=== PATIENT | male | born 1960 | race Caucasian/White ===

== ENCOUNTER → 2018-01-31 11:29 | Outpatient (CLI) | payer MEDICARE, SELFPAY ==
[2018-01-31 14:41] LABS: Erythrocyte Sedimentation Rate 35 mm/hr (0-20)
[2018-01-31 14:44] LABS: Absolute Lymphocyte Count 2.39 X10^3/ul (0.83-4.51); Absolute Neutrophil Count 5.6 X10^3/uL (2.0-7.7); Basophil# 0.03 X10^3/uL; Basophil% 0.3 % (0-1); Eosinophil# 0.19 X10^3/uL; Eosinophils% 2.2 % (0-5); Hematocrit 48.5 % (40-54); Hemoglobin 15.4 g/dl (13.0-16.5); Lymphocyte # 2.39 X10^3/ul (4.0); Lymphocyte % 27.5 % (19-41); Mean Corp Hgb Conc 31.8 g/gl (32-36); Mean Corpuscular Hgb 31.6 pg (27.0-32.0); Mean Corpuscular Volume 99.4 fL (80-94); Mean Platelet Vol. 11.2 fl (6.2-12.0); Monocyte# 0.43 X10^3/uL; Neutrophil # 5.63 X10^3/uL (2.7-7.7); Neutrophil % 64.9 % (47-70); Platelet Count 219 K/mm3 (150-450); RBC Distribution Width CV 13.1 % (11.6-14.6); RBC Distribution Width SD 47.2 fl (35.1-43.9); Red Blood Count 4.88 M/mm3 (4.6-6.2); White Blood Count 8.7 K/mm3 (4.4-11.0)
[2018-01-31 14:48] LABS: Vitamin B12 674 pg/mL (211-911); Vitamin D,25 Hydroxy 59.2 ng/mL (29.95-100.01)
[2018-01-31 14:50] LABS: POSITIVE COUNT NO; POSITIVE DIFFERENTIAL NO; POSITIVE MORPHOLOGY NO
[2018-01-31 15:22] LABS: AST(SGOT) 23 U/L (15-37); Alanine Aminotransfer ALT/SGPT 31 U/L (16-61); Albumin, Serum 3.8 g/dL (3.2-5.0); Alkaline Phosphatase 110 U/L (45-117); Anion Gap 8 (5-15); BUN 15 mg/dL (7-18); BUN/Creat Ratio 15.4 RATIO (10-20); Calcium,Total 9.3 mg/dL (8.5-10.1); Chloride 107 mmol/L (98-107); Cholesterol 165 mg/dL (200); Creatinine, Serum 0.98 mg/dL (0.70-1.30); EST Glomerular Filtration Rate 85 mL/min (>60); Est Glom Filt Rate - Afr Amer 102 mL/min (>60); Ferritin 104 ng/mL (26-388); Globulin 3.9 g/dL (2.2-4.2); Glucose 83 mg/dL (74-106); High Density Lipoprotein 37 mg/dL; Iron 107 ug/dL (65-175); Potassium 3.9 mmol/L (3.5-5.1); Protein, Total 7.7 g/dL (6.4-8.2); Sodium Level 142 mmol/L (136-145); Thyroid Stim Hormone (TSH) 1.87 uIU/mL (0.358-3.74); Triglycerides 91 mg/dL; Very Low Density Lipoprotein 18 mg/dL (5-40)
[2018-02-04 07:56] LABS: Vitamin B1, Thiamine 133.3 nmol/L (66.5-200.0); Zinc, Plasma or Serum 69 ug/dL (56-134)
== END ==
PROVIDERS: Family Provider Family Medicine; PCP Family Medicine; Visit Provider Family Medicine
DX: E29.1 Testicular hypofunction (principal); G60.8 Other hereditary and idiopathic neuropathies; M89.8X9 Other specified disorders of bone, unspecified site; Z98.84 Bariatric surgery status
CPT/HCPCS: 36415; 80053; 80061; 82306; 82607; 82728; 82746; 83540; 83735; 84403; 84425; 84443; 84630; 85025; 85652

== ENCOUNTER → 2018-02-07 11:42 | Outpatient (CLI) | payer MEDICARE, SELFPAY ==
[2018-02-07 15:58] LABS: Erythrocyte Sedimentation Rate 25 mm/hr (0-20)
[2018-02-07 16:04] LABS: CRP < 2.90 mg/L (0.0-3.0); Rheumatoid Factor < 10.0 IU/mL (<15)
[2018-02-09 18:16] LABS: ANTINUCLEAR ANTIBODIES DIRECT Negative (Negative)
== END ==
PROVIDERS: Family Provider Family Medicine; PCP Family Medicine; Visit Provider Family Medicine
DX: M89.8X9 Other specified disorders of bone, unspecified site (principal)
CPT/HCPCS: 36415; 85652; 86038; 86140; 86431

== ENCOUNTER → 2020-10-06 09:52 | Outpatient (CLI) | payer MEDICARE, SELFPAY ==
[2016-05-05 19:24] VITALS: BMI 32.5
[2020-10-06 13:06] LABS: Vitamin B12 562 pg/mL (211-911); Vitamin D,25 Hydroxy 38.8 ng/mL
[2020-10-06 13:24] LABS: ALB/GLOB Ratio 0.9 RATIO (0.9-2.4); AST(SGOT) 18 U/L (15-37); Alanine Aminotransfer ALT/SGPT 30 U/L (16-61); Alkaline Phosphatase 117 U/L (45-117); BUN 14 mg/dL (7-18); Calcium,Total 9.4 mg/dL (8.5-10.1); Cholesterol 211 mg/dL (200); Creatinine, Serum 1.08 mg/dL (0.70-1.30); EST Glomerular Filtration Rate 75 mL/min (>60); Est Glom Filt Rate - Afr Amer 90 mL/min (>60); Globulin 4.3 g/dL (2.2-4.2); Glucose 125 mg/dL (74-106); Protein, Total 8.3 g/dL (6.4-8.2); Triglycerides 92 mg/dL
[2020-10-06 13:25] LABS: Anion Gap 8 (5-15); Chloride 103 mmol/L (98-107); High Density Lipoprotein 48 mg/dL; PSA,Total - Annual Screen 2.15 ng/mL (0.00-4.00); Potassium 3.8 mmol/L (3.5-5.1); Sodium Level 137 mmol/L (136-145); Thyroid Stim Hormone (TSH) 3.77 uIU/mL (0.358-3.74); Very Low Density Lipoprotein 18 mg/dL (5-40)
== END ==
PROVIDERS: PCP Family Medicine; Visit Provider Family Medicine
DX: E11.9 Type 2 diabetes mellitus without complications (principal); Z12.5 Encounter for screening for malignant neoplasm of prostate; Z98.84 Bariatric surgery status
CPT/HCPCS: 36415; 80053; 80061; 82306; 82607; 84153; 84403; 84443; G0103

== ENCOUNTER → 2022-12-28 | Outpatient (CLI) | payer MEDICARE, SELFPAY ==
[2022-12-28 10:31] LABS: Amphetamine Urine VISTA POSITIVE (<1000 ng/mL); Barbiturate Urine VISTA NEGATIVE (< 200 ng/mL); Benzodiazepine Urine VISTA NEGATIVE (< 200 ng/mL); Cocaine Urine VISTA NEGATIVE (< 300 ng/mL); Ecstacy Urine VISTA NEGATIVE (< 500 ng/mL); Methadone Urine VISTA NEGATIVE (< 300 ng/mL); PCP Urine VISTA NEGATIVE (< 25 ng/mL); THC Urine VISTA POSITIVE (< 50 ng/mL); Vista UDS pH Range 5
[2022-12-28 10:40] LABS: Vitamin B12 980 pg/mL (211-911)
[2022-12-28 10:42] LABS: ALB/GLOB Ratio 0.9 RATIO (0.9-2.4); AST(SGOT) 15 U/L (15-37); Alanine Aminotransfer ALT/SGPT 18 U/L (16-61); Albumin, Serum 3.5 g/dL (3.2-5.0); Alkaline Phosphatase 116 U/L (45-117); Anion Gap 4 (5-15); BUN 17 mg/dL (7-18); BUN/Creat Ratio 17.1 RATIO (10-20); Calcium,Total 8.7 mg/dL (8.5-10.1); Chloride 112 mmol/L (98-107); Creatinine, Serum 0.99 mg/dL (0.70-1.30); EST Glomerular Filtration Rate 82 mL/min (>60); Est Glom Filt Rate - Afr Amer 99 mL/min (>60); Globulin 3.8 g/dL (2.2-4.2); Glucose 101 mg/dL (74-106); Magnesium 2.1 mg/dL (1.6-2.6); Potassium 3.5 mmol/L (3.5-5.1); Protein, Total 7.3 g/dL (6.4-8.2); Sodium Level 141 mmol/L (136-145)
== END | disposition home or self-care (01) ==
PROVIDERS: PCP Family Medicine; Referring Provider Registered Nurse; Visit Provider Registered Nurse
DX: F19.10 Other psychoactive substance abuse, uncomplicated (principal); F31.81 Bipolar II disorder; Z79.899 Other long term (current) drug therapy
CPT/HCPCS: 36415; 80053; 80307; 82607; 83735

== ENCOUNTER 2024-05-24 11:29 | Emergency (ER) | payer MEDICARE, SELFPAY ==
[2024-05-24 11:29] VITALS: BP 157/91; PULSE 118; RESP 18; TEMP 36.6; O2SAT 98; BMI 29.7
--- NOTE | 2024-05-24 11:42 | RAD_ITS ---
INDICATION: INJURY EXAMINATION/TECHNIQUE: X-RAY - RIGHT XR Wrist Min 3 Views 3 VIEWS COMPARISON: No relevant prior comparison study available FINDINGS: SOFT TISSUES: No soft tissue swelling or gas. No radiopaque foreign body. BONES/JOINTS: No acute fracture or subluxation.. Normal alignment. 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 No sclerotic or destructive changes observed. RAD/Wrist min 3 Views IMPRESSION: No evidence of acute fracture or dislocation. Electronically Signed: Dread Mayer MD at 12:29 EST ,
--- NOTE | 2024-05-24 11:42 | RAD_ITS ---
INDICATION: FALL EXAMINATION/TECHNIQUE: X-RAY - RIGHT XR Shoulder Min 2 Views 4 VIEWS COMPARISON: No relevant prior comparison study available FINDINGS: SOFT TISSUES: No soft tissue swelling or gas. No radiopaque foreign body. BONES/JOINTS: No acute fracture or subluxation.. Normal alignment. Preservation of the joint space.. No sclerotic or destructive changes observed. RAD/Shoulder min 2 Views IMPRESSION: No evidence of acute fracture or dislocation. Electronically Signed: Dread Mayer MD at 12:25 EST ,
--- NOTE | 2024-05-24 14:46 | ED.RN ---
PT STATED HE WAS GOING TO [place] 2 HRS AGO, NEVER RETURNED
== END 2024-05-24 16:00 | disposition left against medical advice (07) ==
LOC: ED 16:14
PROVIDERS: PCP Family Medicine
DX: Z53.21 Procedure and treatment not carried out due to patient leaving prior to being seen by health care provider (principal)
CPT/HCPCS: 73030; 73110

== ENCOUNTER 2024-05-25 10:34 | Emergency (ER) | payer MEDICARE, MEDICAID, SELFPAY ==
[2024-05-25 10:35] VITALS: BP 141/95; PULSE 110; RESP 18; TEMP 36.6; O2SAT 98; BMI 29.7
--- NOTE | 2024-05-25 10:54 | EX.ED.UPPERE ---
HPI History of Present Illness Chief Complaint: Upper Extremity Injury [facility] Medical History (Updated 05/25/24 @ 10:41 by Debbie Salas) Shoulder pain Home Medications ?Medication ?Instructions ?Recorded ?Last Taken ?Type Pediatric Multivit #14/Iron/FA 1 tab PO DAILY 05/30/13 Unknown History cholecalciferol (vitamin D3) 50 2,000 unit PO DAILY 05/30/13 Unknown History mcg (2,000 unit) tablet (Vitamin D3) cyanocobalamin (vitamin B-12) 500 mcg sublingual DAILY 05/30/13 Unknown History 1,000 mcg sublingual tablet dextroamphetamine-amphetamine 10 20 mg PO TID 05/15/14 Unknown History mg tablet (Adderall) magnesium 200 mg tablet 400 mg PO DAILY 05/15/14 Unknown History temazepam 30 mg capsule (Restoril) 30 mg PO QHS PRN PRN Sleep 05/15/14 Unknown History cephalexin 500 mg capsule 500 mg PO Q6 ##40 05/05/16 Unknown Rx prednisone 20 mg tablet 20 mg PO DAILY 5 days #5 tabs 05/25/24 Unknown Rx Allergy/AdvReac Type Severity Reaction Status Date / Time No Known Allergies Allergy Verified 05/25/24 10:35 Social History Smoking Status: Unknown if ever smoked EXAM Physical Exam Const Vital Signs: 05/25/24 10:35 Temperature 97.8 F Temperature Source Oral Pulse Rate 110 H Respiratory Rate 18 Blood Pressure 141/95 H Blood Pressure Mean 110 Pulse Ox 98 Oxygen Delivery Method Room Air MDM MDM MDM Narrative Medical decision making narrative: HISTORY OF PRESENT ILLNESS: 64-year-old male presents with acute on chronic shoulder pain. States has been on and off past few months. States he had increased exertion this weekend as he was moving. He states this flareup the pain. He also complains of right wrist pain. States; for 8 months. He states he has not tried any medication at home because he is not into taking medications. He has not follow-up with orthopedic surgery. He states he had an x-ray done of his shoulder yesterday. He denies any new traumatic injury. Denies any history of blood clots. Denies history of diabetes. Denies fevers. Denies any numbness, tingling or loss of sensation in the involved extremity. REVIEW OF SYSTEMS: Pertinent positives: Shoulder pain Pertinent negatives: Fever, numbness, tingling, loss sensation, loss of movement, recent trauma PHYSICAL EXAM: Nursing triage notes reviewed, Vital signs reviewed Constitutional: please see mdm : No CVAT Extremities: No edema, no TTP over right clavicle. No step-off deformities noted to right shoulder. Intact shoulder flexion extension internal/external rotation abduction/adduction. Range of motion right shoulder was limited slightly however the patient could complete full range of motion with slight TTP. Neuro: Intact 5/5 strength with ok sign (median), intact finger abduction (ulnar) intact wrist extension (radial n). Intact sensation in the radial, ulnar, and median nerve distr Axillary nerve function intactibutions. Skin: No rash or lesions noted MEDICAL DECISION MAKING: Chief Complaint: Shoulder pain External records reviewed: Injury reviewed: X-ray of the shoulder from yesterday showed no acute fracture dislocation Factors affecting care: none Social determinants of health: none History obtained from others: none Consults: none [facility] Narrative: The patient was initially tachycardic otherwise afebrile and nontoxic-appearing. Exam without obvious deformities. Full range of motion. 4/5 strength in the right upper extremity 5/5 in left upper extremity. I considered the following differential diagnosis: fracture, dislocation, DVT, septic arthritis, rotator cuff strain ALL IMAGES (IF OBTAINED) HAVE BEEN PERSONALLY REVIEWED AND INTERPRETED BY MYSELF. I considered obtaining advanced imaging of the wrist and shoulder however thought this was not indicated at this time given patient no new trauma and had imaging of the shoulder yesterday which showed no acute fracture or dislocation. While considered septic arthritis without this was less likely as the patient's heart rate improved without treatment to 96. He had no fever. There is no sign of decreased range of motion or limited range of motion. Patient had no immunocompromising state such as diabetes or cancer. As such have a low suspicion for septic arthritis at this time. The patient had a low DVT risk score and as such have a low suspicion for DVT. I suspect he is suffering from a rotator cuff strain and acute on chronic shoulder and wrist inflammation exacerbated by recent activities including moving. He already has a wrist brace and will require close outpatient Orthopedics follow-up. Strict return precautions were discussed. Verbal and written instructions were given. The patient and/or family, caregivers express understanding. The patient and/or family, caregivers agrees with the plan. Shared decision making: I will have a discussion with the patient and or visitors regarding risk/benefits of further testing or admission. They will be made aware of of the risk/benefits inherent in this decision they will be given the opportunity to voice understanding. Total critical care time today provided was at least 0 minutes. This excludes separately billable procedures. Critical care time (if documented) is secondary to the patient having high probability of clinically significant/life threatening deterioration in the patient's condition which required my urgent intervention. Impression: 1. acute on chronic right shoulder pain 2. acute on chronic right wrist pain Dispo: dispo This note was generated with [employer] dictation software. It may contain incorrect words, spelling, and punctuation that were not noted in review of the chart prior to signing. Discharge Plan Triage Chief Complaint: Upper Extremity Injury ED Provider: Asif Romero Dx/Rx/DC Orders Instructions: ED Shoulder Sprain, ED Wrist Sprain Prescriptions: New prednisone 20 mg tablet 20 mg PO DAILY 5 Days Qty: 5 0RF No Action cyanocobalamin (vitamin B-12) 1,000 MCG tablet, sublingual 500 mcg sublingual DAILY Patient Comments: takes on cholecalciferol (vitamin D3) [Vitamin D3] 2,000 UNIT tablet 2,000 unit PO DAILY Pediatric Multivit #14/Iron/FA 1 tab PO DAILY dextroamphetamine-amphetamine [Adderall] 10 MG tablet 20 mg PO TID temazepam [Restoril] 30 MG capsule 30 mg PO QHS PRN PRN (Reason: Sleep) magnesium 200 MG tablet 400 mg PO DAILY cephalexin 500 MG capsule 500 mg PO Q6 Qty: 40 0RF Primary Care Provider: Jorge Mayberry Referrals: Jorge Mayberry MD [Primary Care Provider] - Activity Restrictions/Additional Instructions: Thank you for trusting us with your care today! Your history and exam were consistent with acute on chronic wrist and shoulder pain. I do not suspect you are experiencing a arm threatening emergency. Please take Tylenol (2 pills, 650 mg), every 6 hours as needed for pain and fever control. If the Tylenol and prednisone is not controlling her pain please take 1 pill of ibuprofen for additional relief. Please take prednisone as prescribed Please return to the emergency department if your symptoms change or worsen. Please follow with your primary care physician for further outpatient evaluation and management. Print Language: German Disposition Disposition: Home, Self Care Discharge Date/Time: 05/25/24 11:37
== END 2024-05-25 11:37 | disposition home or self-care (01) ==
LOC: ED 11:34
PROVIDERS: Emergency Provider Emergency Medicine; PCP Family Medicine; Visit Provider Emergency Medicine
DX: G89.29 Other chronic pain (principal); M25.531 Pain in right wrist; M25.511 Pain in right shoulder
CPT/HCPCS: 99282

== ENCOUNTER 2024-08-09 19:47 | Inpatient (IN) | payer MEDICARE, MEDICAID, SELFPAY ==
--- NOTE | 2024-08-09 19:48 | EKG12_ITS ---
Test Reason : CP Blood Pressure : */* mmHG Vent. Rate : 74 BPM Atrial Rate : 74 BPM P-R Int : 180 ms QRS Dur : 80 ms QT Int : 410 ms P-R-T Axes : 65 60 69 degrees QTcB Int : 455 ms Critical Test Result: STEMI Normal sinus rhythm Inferior infarct , possibly acute ACUTE CO / STEMI Abnormal ECG Confirmed by Gt Vegas ([id number]), editor city KYLEIGH KIRBY ([id number]) on 08/12/2024 9:55:27 AM Referred By: Sadie Mckeon Confirmed By: Gt Vegas
[2024-08-09 19:49] VITALS: BP 141/89; PULSE 73; RESP 18; O2SAT 100
--- NOTE | 2024-08-09 19:49 | ED.VIS.CHEST ---
HPI History of Present Illness Chief Complaint: Chest Pain Detail of Chief Complaint: Left-sided chest pressure that started 45 minutes prior to arrival Informant: patient Onset/Context/Timing Onset: Today and Hours Activity at onset: sudden Timing: Continuous Quality: Positive for Pressure Location: Left Chest Current Severity: Mild Maximum Severity: Severe Worsened By: Nothing Relieved By: Nothing Associated Symptoms: Positive for Nausea, Diaphoresis and Dyspnea; Negative for Vomiting, Cough, Fever, Lightheadedness, Acid Reflux or Palpitations Narrative Narrative: Patient is a 64-year-old male with history of hypertension, gastric bypass surgery, atrial flutter on no anticoagulant or antithrombotic. He developed chest tightness pressure left side 45 minutes prior to presentation. Prehospital EKG reveals inferior ST elevation in leads II, III, aVF with lateral depression. Prior Similar Symptoms: No Recent Illness/Hospitalization: No CVD Risk Factors: Positive for Hypertension, Hypercholesterolemia and Smoking PE Risk Factors: Negative for Recent Travel/Surgery, Recent Immobilization, Prior DVT or PE, Cancer or OCP + Smoking + >/=35 TAD Risk Factors: Positive for Hypertension; Negative for Marfan's Syndrome or Family History [facility] Medical History (Updated 08/09/24 @ 19:[address] Migue Grider MD) Shoulder pain Home Medications ?Medication ?Instructions ?Recorded ?Last Taken ?Type Pediatric Multivit #14/Iron/FA 1 tab PO DAILY 05/30/13 Unknown History cholecalciferol (vitamin D3) 50 2,000 unit PO DAILY 05/30/13 Unknown History mcg (2,000 unit) tablet (Vitamin D3) cyanocobalamin (vitamin B-12) 500 mcg sublingual DAILY 05/30/13 Unknown History 1,000 mcg sublingual tablet dextroamphetamine-amphetamine 10 20 mg PO TID 05/15/14 Unknown History mg tablet (Adderall) magnesium 200 mg tablet 400 mg PO DAILY 05/15/14 Unknown History temazepam 30 mg capsule (Restoril) 30 mg PO QHS PRN PRN Sleep 05/15/14 Unknown History cephalexin 500 mg capsule 500 mg PO Q6 ##40 05/05/16 Unknown Rx prednisone 20 mg tablet 20 mg PO DAILY 5 days #5 tabs 05/25/24 Unknown Rx Allergy/AdvReac Type Severity Reaction Status Date / Time No Known Allergies Allergy Verified 08/09/24 19:48 Social History Smoking Status: Unknown if ever smoked ROS ROS ED Constitutional Constitutional ED: Denies chills, fever(s), subjective or sweats Eyes Eyes: Reports none ENT ENT ED: Denies ear pain or rhinorrhea Cardiovascular Cardiovascular: Reports as per HPI; Denies orthopnea or paroxysmal nocturnal dyspnea Respiratory/Chest Respiratory/Chest: Reports dyspnea; Denies cough, dyspnea on exertion, orthopnea or paroxysmal nocturnal dyspnea Gastrointestinal Gastrointestinal: Reports nausea; Denies abdominal pain, melena or vomiting Genitourinary Genitourinary ED: Denies dysuria, hematuria or urinary frequency Musculoskeletal Musculoskeletal: Denies arthralgias or myalgias Integumentary Denies rash Neurologic Neurologic: Denies headache(s) or paresthesias Endocrine Endocrinology: Denies cold intolerance or heat intolerance Hematologic/Lymphatic Hematologic/Lymphatic: Denies easy bleeding or easy bruising Allergic/Immunologic Allergic/Immunologic ED: Denies mouth swelling or tongue swelling EXAM Physical Exam Narrative Exam Narrative: Patient received aspirin, Brilinta and heparin prehospital. Const Positive well nourished and well developed General Appearance ED: well developed and NAD HEENT Reports moist mucous membranes HEENT Narrative: Patient is a dentulous. normocephalic and atraumatic Eyes PERRL and EOMs intact bilaterally General Eye ED: Negative for pale conjunctiva Neck no lymphadenopathy and supple Chest Wall inspection of chest normal Resp normal respiratory effort and clear to auscultation bilaterally Cardio regular rate, regular rhythm, S1 normal heart sound, S2 normal heart sound and no murmurs GI normal to inspection, nondistended, normoactive bowel sounds, soft to palpation, non-tender and non-distended; Negative for hepatosplenomegaly Back/Spine no CVA tenderness Extremity normal to inspection General Extremety ED: Negative for pulses abnormal General Extremity: Negative for pulses abnormal Neuro oriented x3 and CN's II-XII intact bilaterally Sensorium / Orientation: awake and alert Psych mental status grossly normal Skin no rashes or lesions noted and no wounds MDM MDM MDM Narrative Medical decision making narrative: Patient's prehospital EKG revealed acute ST elevation MT inferior leads. EKG in the ED shows an acute ST elevation inferior MT. History & Record Review Discussion w/independent historian: Patient Management Discussion w/another healthcare provider: Kindergarten Teacher Assistant (STEMI category planner made aware of EKG prior to patient's arrival. He requested Aircraft Powerplant Repairer be called in.) Critical Care Time Critical Care Time: Yes Critical care time (excluding procedures): 30-74 minutes (10), Including time spent:, Discussing w/Patient &/or Family/Check Processing Clerk, Discussing w/Consultants and Arranging Admission or Transfer Discharge Plan Triage Chief Complaint: Chest Pain ED Provider: Migue Grider Dx/Rx/DC Orders Clinical Impression: Acute ST elevation myocardial infarction (STEMI) of inferior wall, History of primary hypertension, History of type 2 diabetes mellitus, Hx of atrial fibrillation, no current medication Prescriptions: No Action cyanocobalamin (vitamin B-12) 1,000 MCG tablet, sublingual 500 mcg sublingual DAILY Patient Comments: takes on cholecalciferol (vitamin D3) [Vitamin D3] 2,000 UNIT tablet 2,000 unit PO DAILY Pediatric Multivit #14/Iron/FA 1 tab PO DAILY dextroamphetamine-amphetamine [Adderall] 10 MG tablet 20 mg PO TID temazepam [Restoril] 30 MG capsule 30 mg PO QHS PRN PRN (Reason: Sleep) magnesium 200 MG tablet 400 mg PO DAILY cephalexin 500 MG capsule 500 mg PO Q6 Qty: 40 0RF prednisone 20 mg tablet 20 mg PO DAILY 5 Days Qty: 5 0RF Primary Care Provider: Jorge Mayberry Referrals: Jorge Mayberry MD [Primary Care Provider] - Print Language: Trinidadian Disposition Disposition: Acute Care [facility]
[2024-08-09 19:57] VITALS: BP 141/89; TEMP 36.6; BMI 35.6
[2024-08-09 20:03] LABS: Absolute Neutrophil Count 6.3 X10^3/uL (2.0-7.7); Basophil# 0.05 X10^3/uL; Basophil% 0.6 % (0-1); Eosinophil# 0.07 X10^3/uL; Eosinophils% 0.8 % (0-5); Hemoglobin 14.1 g/dL (13.0-16.5); Lymphocyte % 20.1 % (19-41); Mean Corpuscular Hgb 30.5 pg (27.0-32.0); Mean Corpuscular Volume 95.2 fL (80-94); Mean Platelet Vol. 10.4 fl (6.2-12.0); Monocyte# 0.69 X10^3/uL; Monocyte% 7.7 % (0-10); NRBC Flagged by Analyzer 0 % (0-5); Neutrophil # 6.31 X10^3/uL (2.7-7.7); Neutrophil % 70.5 % (47-70); Platelet Count 271 K/mm3 (150-450); RBC Distribution Width SD 45.2 fl (35.1-43.9); Red Blood Count 4.62 M/mm3 (4.6-6.2)
--- NOTE | 2024-08-09 20:08 | PCM.HP.STD ---
HPI - General General Date of Admission: 08/09/24 Date of Service: 08/09/24 Chief Complaint: Chest pain, dyspnea, N/V, diaphoresis. HPI Narrative The patient is a 64 y/o M w/ PMHx: Nicotine vaping use, History of Diabetes mellitus type II s/p gastric bypass not on any diabetic regimen, HTN, Prior chart noted history PAF/Flutter, ADHD who presents to the [facility] ED on 08/09/24 as a pre-hospital inferior STEMI with history of onset approximately 45 minutes prior to ED arrival while he was resting to go to the store onset left-sided chest discomfort with no radiation with associated dyspnea, nausea, emesis, diaphoresis rating his discomfort at that time 10 out of 10 prompting EMS call prehospital EKG as noted with evidence of STEMI within route administration of full-strength aspirin, Brilinta load as well as heparin 4000. Upon arrival he specifically described the chest discomfort as a squeezing type sensation. In the ED his chest discomfort did improved to 8 out of 10 in severity and following this upon cardiology evaluation in the ED had already decreased down to 6-7 out of 10 in severity. In the ED repeat EKG obtained and confirmed STEMI. Cardiology evaluated patient in the ED and patient was transition to cardiac catheterization lab for further intervention. Vital signs in the ED upon arrival T98 temporally, heart rate 131/89, respiratory rate 18. [facility] Medical History (Updated 08/09/24 @ 21:[address] Sadie Mckeon MD) History of type 2 diabetes mellitus Hx of atrial fibrillation, no current medication Nicotine vapor product user HTN (hypertension) Home Medications ?Medication ?Instructions ?Recorded ?Last Taken ?Type Pediatric Multivit #14/Iron/FA 1 tab PO DAILY 05/30/13 Unknown History cholecalciferol (vitamin D3) 50 2,000 unit PO DAILY 05/30/13 Unknown History mcg (2,000 unit) tablet (Vitamin D3) cyanocobalamin (vitamin B-12) 500 mcg sublingual DAILY 05/30/13 Unknown History 1,000 mcg sublingual tablet dextroamphetamine-amphetamine 10 20 mg PO TID 05/15/14 Unknown History mg tablet (Adderall) magnesium 200 mg tablet 400 mg PO DAILY 05/15/14 Unknown History temazepam 30 mg capsule (Restoril) 30 mg PO QHS PRN PRN Sleep 05/15/14 Unknown History cephalexin 500 mg capsule 500 mg PO Q6 ##40 05/05/16 Unknown Rx prednisone 20 mg tablet 20 mg PO DAILY 5 days #5 tabs 05/25/24 Unknown Rx Allergy/AdvReac Type Severity Reaction Status Date / Time No Known Allergies Allergy Verified 08/09/24 19:48 Family History (Updated 08/09/24 @ 20:[address] Sadie Mckeon MD) Mother Cancer Father Cancer Surgical History (Updated 08/09/24 @ 20:[address] Sadie Mckeon MD) History of tonsillectomy and adenoidectomy S/P gastric bypass Social History (Updated 08/09/24 @ 20:[address] Sadie Mckeon MD) household members: none Electronic Cigarette Use: with nicotine alcohol intake: never substance use type: does not use ROS ROS Narrative Admission Review of Systems: CONSTITUTIONAL: No weight loss, fever, chills, + weakness or fatigue. HEENT: Eyes: No visual loss, blurred vision, double vision or yellow sclerae. Ears, Nose, Throat: No hearing loss, sneezing, congestion, runny nose or sore throat. SKIN: No rash or itching, lesions, wounds. CARDIOVASCULAR: + Chest pain/squeezing. No palpitations, edema, orthopnea, syncopal events. RESPIRATORY: No shortness of breath, cough or sputum, wheezing, hemoptysis. GASTROINTESTINAL: + Anorexia, nausea, vomiting. No diarrhea, abdominal pain, melena, BRBPR. GENITOURINARY: No dysuria, frequency, urgency or retention. NEUROLOGICAL: No headache, dizziness, syncope, paralysis, ataxia, numbness or tingling in the extremities, focal weakness, change in bowel or bladder control, seizure. MUSCULOSKELETAL: + muscle, back pain, joint pain or stiffness. HEMATOLOGIC: No anemia, bleeding or bruising. LYMPHATICS: No enlarged nodes. No history of splenectomy. PSYCHIATRIC: No history of depression or anxiety. ENDOCRINOLOGIC: + reports of sweating. No cold or heat intolerance. No polyuria or polydipsia. ALLERGIES: No history of asthma, hives, eczema or rhinitis. Vital Signs Vital Signs Vital Signs: 08/09/24 19:49 08/09/24 19:57 Temperature 98 F Temperature Source Temporal Respiratory Rate 18 Blood Pressure 141/89 H 141/89 H Blood Pressure Mean 106 Oxygen Delivery Method Nasal Cannula Oxygen Flow Rate (L/min) 4 Weight Weight: 263 lb 3.711 oz Body Mass Index (BMI) 35.6 Physical Exam Narrative Physical Examination: General: Awake, alert, oriented x 3 and cooperative, seated upright in the ED bed, severely uncomfortable appearing, rating discomfort initially 8 out of 10 in severity which decreased from his prehospital 10 out of 10 in severity, squeezing, left-sided chest. Skin: Normal color, normal turgor, no icterus, no cyanosis. HEENT: AT/NC, EOMI, PERRLA, MMM, no carotid bruits or JVD noted. Lungs: Mildly diminished, greater bases, proper effort, no rales, ronchi or wheezing. Heart: Regular rate and rhythm; no gallop, rub audible. Abdomen: Soft, NTTP, ND, distant normal BS, no HSM. Extremities: No cyanosis, no clubbing, mild ankle bilateral not markedly pitting edema suspect chronic. Neurological: Patient awake, alert, oriented as noted, cognitive function intact; pupils equally reactive to light and accommodation, cranial nerves grossly normal, moving all 4 extremities, no focal deficits, strength severely globally creased given acute presentation, appears to potentially have low threshold to pain as severely agitated with IV attempts in the ED. Psychiatric: Affect appears uncomfortable, appears in pain, no acute evidence of depressive or anxiety feelings. Results Lab / Micro Data 08/09/24 19:49 08/09/24 19:49 Labs: Laboratory Results - last 24 hr 08/09/24 19:49: WBC 9.0, RBC 4.62, Hgb 14.1, Hct 44.0, MCV 95.2 H, MCH 30.5, MCHC 32.0, RDW Std Deviation 45.2 H, RDW Coeff of Andreina 13.0, Plt Count 271, MPV 10.4, Immature Gran % (Auto) 0.300, Neut % (Auto) 70.5 H, Lymph % (Auto) 20.1, [place] % (Auto) 7.7, Eos % (Auto) 0.8, Baso % (Auto) 0.6, Absolute Neuts (auto) 6.3, Absolute Lymphs (auto) 1.80, Nucleated RBC % 0 Assessment & Plan Assessment/Plan (1) Acute ST elevation myocardial infarction (STEMI) of inferior wall: PLAN: Plan The patient is a 64 y/o M w/ PMHx: Nicotine vaping use, History of Diabetes mellitus type II s/p gastric bypass not on any diabetic regimen, HTN, Prior chart noted history PAF/Flutter, ADHD who presents to the [facility] ED on 08/09/24 as a pre-hospital inferior STEMI with history of onset approximately 45 minutes prior to ED arrival while he was resting to go to the store onset left-sided chest discomfort with no radiation with associated dyspnea, nausea, emesis, diaphoresis rating his discomfort at that time 10 out of 10 prompting EMS call prehospital EKG as noted with evidence of STEMI within route administration of full-strength aspirin, Brilinta load as well as heparin 4000. #1. Chest Pain w/ Acute Inferior STEMI: EKG in ED w/ evidence of inferior STEMI with reciprocal changes in the lateral leads. Will transition from ED to cardiac catheterization lab and from there following intervention to the ICU. Will maintain on a monitored bed, continue serial cardiac enzymes and EKGs. Obtain magnesium level upon admission. Loaded with heparin on route per EMS. Continue medical management w/ asa, add high-dose statin w/ AM FLP. ECHO requested. Will defer beta-mandi/EDUARDO inhibitor/ARB/second antiplatelet therapy per discretion of cardiology per discussion with Dr. Laureano. #2. Hypertension: Noted history, per current list not on regimen, discussed with cardiology and they will ascertain best regimen following cardiac catheterization thus will hold on any beta-mandi or EDUARDO inhibitor/ARB addition, PRN IV hydralazine. #3. History diabetes mellitus type 2: Not on the regimen for several years, patient notes at least 10 status post gastric bypass, will obtain hemoglobin A1c to be cautious and until clarify will maintain on ADA diet with Accu-Cheks with insulin sliding scale and de-escalate off as long as blood sugars appropriate and hemoglobin A1c is appropriate. #4. Prior chart history of PAF/flutter: Noted remotely in the chart on echocardiogram reason for being obtained, denies any chronic anticoagulation and is not even on aspirin therapy or any rate or rhythm agent, will closely monitor on telemetry. #5. ADHD: Clarifying patient Adderall regimen, will continue once clinically appropriate. #6. Vaping nicotine use: Encouraged cessation, inpatient consultation per RT, NR if desired. #7. DVT prophylaxis: Will initiate Lovenox in AM. Heparin bolus administered on route per EMS. #8. CODE status: Patient does not have a healthcare power of attorney lawyer or living will in place but notes his sister Laura Arshad would be his medical decision-maker if necessary. Discussed CODE status at length including difference between FULL code, DNR-CCA and DNR-CC status. Following discussions about the differences in these status, requested Full Code status. Advanced Care Planning Face to Face Time: 16 minutes. Charges/Coding Visit Charges Inpatient E&M: 43832 Init Hosp L3 Procedures Hospitalists Procedures: 37536 Advncd Care Plan 30 Min
[2024-08-09 20:10] LABS: International Normalized Ratio 1.1; Prothrombin Time (Protime)PT. 14.4 SECONDS (11.7-14.9)
[2024-08-09 20:31] LABS: Partial Thromboplast Time 125.7 Seconds (24.1-36.2)
[2024-08-09 20:40] LABS: Magnesium 2.5 mg/dL (1.6-2.6)
[2024-08-09 20:50] VITALS: PULSE 124; RESP 14; RESP 18; O2SAT 100
[2024-08-09 20:52] LABS: Anion Gap 5 (5-15); BUN 18 mg/dL (7-18); BUN/Creat Ratio 14.4 RATIO (10-20); Calcium,Total 9.8 mg/dL (8.5-10.1); Chloride 105 mmol/L (98-107); Creatinine, Serum 1.25 mg/dL (0.70-1.30); EST Glomerular Filtration Rate 62 mL/min (>60); Est Glom Filt Rate - Afr Amer 75 mL/min (>60); Estimated Creatinine Clearance 81.74 ml/min; Glucose 121 mg/dL (74-106); Potassium 4.2 mmol/L (3.5-5.1); Sodium Level 139 mmol/L (136-145); Troponin-I HS 797 pg/mL (3.0-78.0)
--- NOTE | 2024-08-09 21:01 | PCM.HOSP.N ---
Hospitalist Note Intubation Note: Patient with significant agitation while cardiology attempted to perform his cardiac catheterization with unfortunate trauma with significant blood loss associated therefore decision per discussion with team to intubate for patient's safety. Medications administered: Succinylcholine 100 mg x 1. ETT size: 7.5 Patient intubated in standard fashion with glide scope visualization of the vocal cords and passage of the ETT. Positioning verified with auscultation. Post-intubation CXR requested. Patient with transition to ICU planned following cardiac catheterization with consultation with ICU physician per facility protocol. Given severity of agitation some concern for undisclosed EtOH abuse or other substance abuse issue. Denied any substance abuse including EtOH abuse upon admission evaluation. For patient safety given this occurrence in addition to agitation and need for quick repeat bolusing with propofol will opt to keep patient intubated following to assure no trauma to the entrace site/post-op risk for hematoma with agitation. Multi Select Codes Hospitalists' Procedures Procedures: 14107 Insert Emergency Airway
--- NOTE | 2024-08-09 21:06 | NURSING ---
Previously reported PTT of 113.7, received from Lab incorrect, the corrected Lab value is 125.7: See Coagulation documentation for further details
--- NOTE | 2024-08-09 21:45 | RAD_ITS ---
PROCEDURE: CHEST 1 VIEW (PORTABLE) REASON FOR EXAM: 64-year-old male, confirm endotracheal tube placement. TECHNIQUE: Frontal view of the chest. COMPARISON: None. FINDINGS: Endotracheal tube within the upper trachea. The heart size is normal. No pleural effusion, focal consolidation or pneumothorax. RAD/Chest 1 View (Portable) IMPRESSION: Endotracheal tube as described, with repositioning on immediate subsequent ches t radiograph. Reading Location: [id number]
[2024-08-09 21:50] VITALS: PULSE 106; RESP 14; RESP 16; O2SAT 100
--- NOTE | 2024-08-09 21:56 | RAD_ITS ---
PROCEDURE: CHEST 1 VIEW (PORTABLE) REASON FOR EXAM: 64-year-old male, endotracheal tube placement. TECHNIQUE: Frontal view of the chest. COMPARISON: Chest radiograph earlier same day. FINDINGS: Interval endotracheal tube advancement with tip terminating approximately 4 cm above the level of the carlos. The left costophrenic angle is not entirely included in the field of view. No right pleural effusion, pneumothorax or focal consolidation. Degenerative changes are identified within the thoracic spine. RAD/Chest 1 View (Portable) IMPRESSION: Interval endotracheal tube advancement as described. Reading Location: [id number]
--- NOTE | 2024-08-09 22:09 | PCI.CARDCATH ---
PCI Cardiac Cath Report PCI Report: Procedure performed; left heart catheterization 1. 6 Namibian sheath placed in the right radial artery 2. 6 Namibian sheath placed in the right common femoral artery 3. 7 Namibian sheaths placed in the right common femoral vein 4. Selective left coronary angiography 5. Selective right coronary angiography. 6. Patient intubated in the [employer]. 7. Placement of suture to right common femoral artery sheath as well as right common femoral vein sheath. 8. TR band used for the right radial artery arteriotomy site Procedure in detail; 64-year-old patient very poor historian brought in by EMS to ED at [facility] complaining of symptoms of chest pain. He was given Brilinta heparin aspirin The EKG showed clear evidence of Q waves noted in the inferior leads with mild ST elevation. There was no significant reciprocal change in the EKG. Patient continued to complain of symptoms of chest pain while in the ED and was taken as an emergency to the [employer]. Consent; as an emergency consent was obtained explaining the risk and benefit of the procedure. Diagnostic and interventional catheter used 1. 5 Namibian JL 3 5 2. 6 Namibian JR4 guide. Medication used; #1 aspirin 2. Brilinta 3. Heparin 4. Sedation with propofol, fentanyl, Versed Procedure in detail we will proceed with diagnostic catheter selective angiographic view of left Cholestin were obtained. Following this the catheter exchanged for 6 Namibian RCA guide and selective angiographic view of the RCA was obtained. Patient was very unstable moving even though he was given a lot of sedation intubated. He has been on a higher dose of sedations still was very unstable on the Air[employer]. It was not clear from the history whether the patient has a history of drug use or alcohol use however the level of sedation was very high and the patient was still very unstable moving all his legs and hands and we were having difficult time in the [employer] to sedate the patient enough to intervene on the culprit lesion. Coronary angiography findings; 1. The left main coronary artery normal angiographically trifurcating into LAD, large ramus as well as left circumflex artery 2. Left anterior descending is moderate to large size vessel reach all the way to the apex Angiographically mid LAD had nonobstructive atherosclerosis The Pharis diagonal has a proximal lesion of around 30% SURENDRA-3 flow noted in the left anterior descending artery 3. Ramus intermedius large vessel with no significant atherosclerosis 4. Left circumflex large vessel normal angiographically 5. RCA is large dominant large portion of thrombus involving the proximal RCA with embolization to the mid portion of the RCA Is still SURENDRA-3 flow noted in the right coronary artery. The plan of intervening on this artery was not completed due to the instability of the patient in the [employer]. Therefore as an emergency we discussed the case with a tertiary care facility which is from the hospital with security screener and patient will be sent over sutures applied to the sheath of the right common femoral artery as well as the right common femoral vein heparin was started patient is still on the higher dose of sedation including fentanyl infusion as well as propofol infusion however he is still unstable he was intubated and he had bleeding at the site of the intubation which is mild bleeding. The chest x-ray was obtained which revealed position normal for the ET tube. Very high risk patient with very unstable for intervention he will be sent over as an emergency with flight to [facility]. I discussed in detail the finding of cardiac catheterization the clinical presentation of this patient the EKG finding the lab results. His hemoglobin hematocrit and platelet count are normal his creatinine is 1.2. And his high sensitive troponin was elevated above 700. Patient has been accepted by the interventional team at [facility] and will be transferred with flight Karin Laureano MD,[facility] interlocking and signal mechanic
[2024-08-09 22:14] LABS: Base Excess 1 mmol/L (-2 to +2); Bicarbonate 28.4 mmol/L (22-26); Blood Gas Specimen Type ART; Mode AC; O2 Delivery Device Adult Vent; PEEP 5; PO2 315 mmHG (75-100); RR 14; SITE Art Line; SO2 100 % (95-99); Total Carbon Dioxide 30 mmol/L; pCO2 62.9 mmHg (35-45); pH 7.26 (7.35-7.45)
[2024-08-09 22:15] VITALS: PULSE 98; RESP 18; O2SAT 100
[2024-08-09 22:41] LABS: ACT Activated Clotting Time 204 sec (74-137)
--- NOTE | 2024-08-09 22:55 | PCM.DC.SUM ---
Providers Date of Admission: 08/09/24 Date of Discharge: 08/09/24 Primary Care Physician: Dr. Jorge Mayberry MD Reason For Visit: ACUTE INFERIOR MYOCARDIAL INFARCTION Diagnosis Discharge Diagnosis (1) Acute ST elevation myocardial infarction (STEMI) of inferior wall: Status: Acute Code(s): I21.19 - ST elevation (STEMI) myocardial infarction involving other coronary artery of inferior wall Plan: DISCHARGE DIAGNOSES: #1. Chest Pain w/ Acute Inferior STEMI with evidence of RCA large dominant with a large portion of thrombus involving the proximal RCA with embolization to the midportion of the RCA with inability to intervene secondary to severity of agitation #2. Severe difficulty sedating with suspected underlying EtOH abuse versus drug abuse, uncertain #3. Hypertension #4. History diabetes mellitus type 2 #5. Prior chart history of PAF/flutter #6. ADHD #7. Vaping nicotine use #8. CODE status Medications at Discharge Home Medications Pediatric Multivit #14/Iron/FA 1 tab PO DAILY 05/30/13 cholecalciferol (vitamin D3) 50 mcg (2,000 unit) tablet (Vitamin D3) 2,000 unit PO DAILY 05/30/13 cyanocobalamin (vitamin B-12) 1,000 mcg sublingual tablet 500 mcg sublingual DAILY 05/30/13 dextroamphetamine-amphetamine 10 mg tablet (Adderall) 20 mg PO TID 05/15/14 magnesium 200 mg tablet 400 mg PO DAILY 05/15/14 temazepam 30 mg capsule (Restoril) 30 mg PO QHS PRN PRN Sleep 05/15/14 cephalexin 500 mg capsule 500 mg PO Q6 ##40 05/05/16 prednisone 20 mg tablet 20 mg PO DAILY 5 days #5 tabs 05/25/24 Hospital Course Operations None Procedures Cardiac catheterization and EKG Summary of Care Provided Minutes Spent on Discharge: 40 Hospital Course: The patient is a 64 y/o M w/ PMHx: Nicotine vaping use, History of Diabetes mellitus type II s/p gastric bypass not on any diabetic regimen, HTN, Prior chart noted history PAF/Flutter, ADHD who presents to the [facility] ED on 08/09/24 as a pre-hospital inferior STEMI with history of onset approximately 45 minutes prior to ED arrival while he was resting to go to the store onset left-sided chest discomfort with no radiation with associated dyspnea, nausea, emesis, diaphoresis rating his discomfort at that time 10 out of 10 prompting EMS call prehospital EKG as noted with evidence of STEMI within route administration of full-strength aspirin, Brilinta load as well as heparin 4000. Upon arrival he specifically described the chest discomfort as a squeezing type sensation. In the ED his chest discomfort did improved to 8 out of 10 in severity and following this upon cardiology evaluation in the ED had already decreased down to 6-7 out of 10 in severity. In the ED repeat EKG obtained and confirmed STEMI. Cardiology evaluated patient in the ED and patient was transition to cardiac catheterization lab for further intervention. Unfortunately upon transition while attempting to perform cardiac catheterization patient became severely agitated with any intervention attempts with associated concerns for possible error in procedure and blood loss associated therefore decision per discussion with team to intubate for patient's safety. Despite intubation with succinylcholine and eventually placed on propofol patient continued to be agitated therefore fentanyl was added and despite this discontinued even with bolusing and maxed dosing eventually also placed on rocuronium. Cardiac catheterization completed following this and patient had evidence of significant RCA infarct with a large thrombus therefore cardiology recommended transfer. Transfer was arranged with [facility] with acceptance and [facility] was contacted and accepted patient from the cardiac catheterization lab. Weight / BMI Weight Weight: 263 lb 3.711 oz Body Mass Index (BMI) 35.6 ABG / Lab / Microbiology Data 08/09/24 19:49 08/09/24 19:49 Laboratory: Laboratory Results - last 24 hr 08/09/24 19:49: WBC 9.0, RBC 4.62, Hgb 14.1, Hct 44.0, MCV 95.2 H, MCH 30.5, MCHC 32.0, RDW Std Deviation 45.2 H, RDW Coeff of Andreina 13.0, Plt Count 271, MPV 10.4, Immature Gran % (Auto) 0.300, Neut % (Auto) 70.5 H, Lymph % (Auto) 20.1, [place] % (Auto) 7.7, Eos % (Auto) 0.8, Baso % (Auto) 0.6, Absolute Neuts (auto) 6.3, Absolute Lymphs (auto) 1.80, Nucleated RBC % 0, PT 14.4, INR 1.1, APTT 125.7 H*, Sodium 139, Potassium 4.2, Chloride 105, Carbon Dioxide 29.0, Anion Gap 5, BUN 18, Creatinine 1.25, Estim Creat Clear Calc 81.74, Est GFR (MDRD) Af Amer 75, Est GFR (MDRD) Non-Af 62, BUN/Creatinine Ratio 14.4, Glucose 121 H, Calcium 9.8, Troponin I High Sens 797 H* 08/09/24 20:16: Magnesium 2.5 08/09/24 20:37: Activated Clotting Time 204 H ABG: ABG 08/09/24 22:10 Specimen Type ART Sample Site Art Line pH 7.26 L Bicarbonate Actual 28.4 H Total CO2 30 Base Excess 1 O2 Saturation 100 H O2 % 100.0 ABG pCO2 62.9 H ABG pO2 315 H* Respiration Rate 14 O2 Delivery Device Adult Vent Vent Mode AC Tidal Volume 450.0 POC PEEP 5 Crit Call To/Read Back Yes Blood Gas Notified Whom Dr. Mckeon Blood Gas Notified Time 22:11:56 Radiography Diagnostic Testing: Radiology Impression Chest X-Ray 08/09/24 21:45 IMPRESSION: Endotracheal tube as described, with repositioning on immediate subsequent chest radiograph. Reading Location: [facility] Chest X-Ray 08/09/24 21:56 IMPRESSION: Interval endotracheal tube advancement as described. Reading Location: [facility] D/C Instructions DC O2, CPAP, BIPAP Needs Home O2 Discharge instructions: No Meaningful Use Info Meaningful Use Meaningful Use Diagnoses (Choose all that apply): AMI AMI/Post PCI/Angioplasty Aspirin given w/in 24hrs of arrival?: Yes ASA at discharge?: Yes Antiplatelet Therapy at Discharge:: Yes Statins at discharge?: No Reason statins not ordered:: Drug Interaction (Transfer prior to start statin.) Bhavik/ARB at discharge?: No Reason Bhavik/ARB not ordered:: Not indicated (Transfer prior to start of regimen.) Beta Darleen at discharge?: No Reason Beta Darleen not ordered:: Drug Interaction (Transfer prior to start of regimen.) Done w/ Acute OH measure.: Yes Ischemic Stroke Statin Dosing Therapy Reference: STATIN DOSE THERAPY REFERENCE: * Patients > 75 years receive moderate or high dose statin therapy. * Patients 75 years or YOUNGER should receive HIGH intensity statin dose unless contraindicated. You will be required to document reason for non-treatment if statin daily dose does not meet guidelines. HIGH DOSE STATIN THERAPY DAILY Atorvastatin > than or = to 40 mg Rosuvastatin > than or = to 20 mg Amlodipine + Atorvastatin > than or = to 2.5/40 mg Ezetimibe + Simvastatin 10/80 mg Simvastatin 80mg Discharge Plan Admission Admit Date/Time: 08/09/24 20:11 Attending Provider: Sadie Mckeon Primary Care Provider: Jorge Mayberry Discharge Orders/Prescriptions Prescriptions: No Action cyanocobalamin (vitamin B-12) 1,000 MCG tablet, sublingual 500 mcg sublingual DAILY Patient Comments: takes on cholecalciferol (vitamin D3) [Vitamin D3] 2,000 UNIT tablet 2,000 unit PO DAILY Pediatric Multivit #14/Iron/FA 1 tab PO DAILY dextroamphetamine-amphetamine [Adderall] 10 MG tablet 20 mg PO TID temazepam [Restoril] 30 MG capsule 30 mg PO QHS PRN PRN (Reason: Sleep) magnesium 200 MG tablet 400 mg PO DAILY cephalexin 500 MG capsule 500 mg PO Q6 Qty: 40 0RF prednisone 20 mg tablet 20 mg PO DAILY 5 Days Qty: 5 0RF Referrals / Follow Up: Jorge Mayberry MD [Primary Care Provider] - Charges/Coding Multi Select Codes Visit Charges Visit Charges: 76679 Disch Hosp
--- NOTE | 2024-08-09 23:10 | NURSING ---
[facility] did not transport with Fentanyl drip- remaining dose in IV bag- 80ml wasted. Witnessed by Chad Haile RN
[2024-08-16 07:09] LABS: ACT Activated Clotting Time 164 sec (74-137)
== END 2024-08-10 00:05 | disposition short-term general hospital (02) | DRG 282 ==
LOC: ED 19:54 → CLSP 08-12 15:46 → ICU 08-12 16:25
PROVIDERS: Admitting Provider Family Medicine; Emergency Provider Emergency Medicine; PCP Family Medicine; Referring Provider Family Medicine; Visit Provider Family Medicine
DX: I21.11 ST elevation (STEMI) myocardial infarction involving right coronary artery (principal); E11.9 Type 2 diabetes mellitus without complications; I10 Essential (primary) hypertension; F10.10 Alcohol abuse, uncomplicated; F17.200 Nicotine dependence, unspecified, uncomplicated; E78.00 Pure hypercholesterolemia, unspecified; F17.210 Nicotine dependence, cigarettes, uncomplicated; I25.84 Coronary atherosclerosis due to calcified coronary lesion; I25.10 Atherosclerotic heart disease of native coronary artery without angina pectoris; Z98.84 Bariatric surgery status; F90.9 Attention-deficit hyperactivity disorder, unspecified type; Z79.52 Long term (current) use of systemic steroids; Z79.899 Other long term (current) drug therapy; Z75.1 Person awaiting admission to adequate facility elsewhere; R45.1 Restlessness and agitation
CPT/HCPCS: 31500; 31720; 71045; 80048; 82803; 83735; 84484; 85025; 85347; 85610; 85730; 93005; 93454; 94002; 99152; 99153; 99252; 99283; C1894; Q9967; A4216; C1769; C1887; G0463

== ENCOUNTER 2024-09-19 16:39 | Emergency (ER) | payer MEDICARE, MEDICAID, SELFPAY ==
[2024-09-19] VITALS (8 sets, daily range): BP systolic 125–176; BP diastolic 77–106; PULSE 62–87; RESP 17–24; TEMP 36.8; O2SAT 93–98; BMI 30.8
--- NOTE | 2024-09-19 16:53 | CT_ITS ---
PROCEDURE: ABDOMEN/PELVIS W IV CONT ONLY 09/19/2024 REASON FOR EXAM: 64-year-old male, UPPER ABDOMINAL PAIN TECHNIQUE: Abdomen and pelvis CT with intravenous contrast. Coronal and Sagittal reconstruction series were provided. PATIENT PREPARATION: Per protocol ORAL CONTRAST TYPE: None. CONTRAST: Isovue 370 VOLUME: 100 mL One or more dose reduction techniques were used (e.g., Automated exposure control, adjustment of the mA and/or kV according to patient size, use of iterative reconstruction technique. RADIATION DOSE SUMMARY: CTDlvol: 60 mGy DLP: 1500 mGycm COMPARISON: None. FINDINGS: Lung bases: Tiny bilateral pulmonary nodules (for example within the right middle lobe series 2, images 1 and 2). Dense calcification of the coronary arteries compatible with reported stenting. The heart is normal in size. Liver: The liver is normal in size with hepatic dome cyst/hemangioma. The major portal veins are patent. Minimal intrahepatic biliary ductal dilation. Gallbladder: No radiopaque stones within the gallbladder, however there is gallbladder wall thickening and mild pericholecystic fluid. Spleen: Normal in size. Pancreas: Unremarkable. Adrenals: No adrenal mass. Kidneys: No hydronephrosis or nephrolithiasis. Bladder: Distended and unremarkable. Reproductive Organs: Unremarkable prostate. Penile implant with reservoir in the left lower quadrant. Deflated, retained reservoir within the right lower quadrant. Bowel: Prior Emmy-en-Y gastric bypass. Target appearance of the small bowel at the entrance of the jejunal loop to the proximal portion of the jejuno jejunal anastomosis (series 2, image 72). The bowel loops are normal in caliber. No ascites or pneumoperitoneum. Normal appendix. Lymph nodes: No suspicious lymph node enlargement. Vasculature: Moderate mixed calcific plaque of the aortoiliac vessels. Bones: Thoracolumbar spondylosis. CT/Abdomen/Pelvis W IV Cont ONLY IMPRESSION: 1. Prior Emmy-en-Y gastric bypass with target appearance of the small bowel at the jejunal anastomosis, which may represent transient intussusception, however small-bowel intussusception can not be ruled out. Clinical correlation recommended and possible surgical consult if indicated. 2. Gallbladder wall thickening and pericholecystic fluid without radiopaque sto [place]. Correlation with right upper quadrant ultrasound is recommended. 3. Tiny bilateral pulmonary nodules. If patient is high risk, recommend option al follow-up CT chest in 1 year. Reading Location: [id number]
--- NOTE | 2024-09-19 16:53 | EKG12_ITS ---
Test Reason : cp Blood Pressure : */* mmHG Vent. Rate : 64 BPM Atrial Rate : 64 BPM P-R Int : 184 ms QRS Dur : 86 ms QT Int : 422 ms P-R-T Axes : 67 40 24 degrees QTcB Int : 435 ms Normal sinus rhythm Possible Inferior infarct (cited on or before 09-Aug-2024) Abnormal ECG Confirmed by WILL BONILLA, MAURICE ([id number]), sound editor KYLEIGH KIRBY ([id number]) on 09/20/2024 9:46:38 AM Referred By: Ricardo Confirmed By: MAURICE SOLIS MD
--- NOTE | 2024-09-19 16:55 | EX.ED.DYSGE1 ---
HPI History of Present Illness Chief Complaint: Chest Pain Detail of Chief Complaint: Upper abdomen pain Informant: patient Narrative Narrative: Patient presents to the emergency department complaint of upper abdomen pain that started this morning after he ate. States he ate something spicy but not unusual for him and then started having upper abdominal pressure and discomfort. He felt like he needed to call EMS because it reminded him somewhat of the symptoms that he had August 09 when he had a heart attack and required [facility] to [facility] where he had 2 stents placed in his right coronary artery. Patient denies the discomfort really radiating into the arm or the jaw. At 1 point he states that he thinks he may have felt it into his right upper chest. He describes a pressure sensation at times kind of a stinging or number tingly sensation in the upper abdomen. Patient also with prior history of gastric bypass surgery 13 years ago. He is unsure if he still has his gallbladder. [facility] Medical History (Updated 09/19/24 @ 21:[address] Charli Duarte, DO) History of type 2 diabetes mellitus Hx of atrial fibrillation, no current medication Nicotine vapor product user HTN (hypertension) Home Medications ?Medication ?Instructions ?Recorded ?Last Taken ?Type Pediatric Multivit #14/Iron/FA 1 tab PO DAILY 05/30/13 Unknown History cholecalciferol (vitamin D3) 50 2,000 unit PO DAILY 05/30/13 Unknown History mcg (2,000 unit) tablet (Vitamin D3) cyanocobalamin (vitamin B-12) 500 mcg sublingual DAILY 05/30/13 Unknown History 1,000 mcg sublingual tablet magnesium 200 mg tablet 400 mg PO DAILY 05/15/14 Unknown History temazepam 30 mg capsule (Restoril) 30 mg PO QHS PRN PRN Sleep 05/15/14 Unknown History dextroamphetamine-amphetamine 20 1 tab PO TID 09/19/24 Unknown History mg tablet gabapentin 300 mg capsule 300 mg PO TID 09/19/24 Unknown History hydroxyzine HCl 50 mg tablet 25 - 100 mg PO DAILY 09/19/24 Unknown History lamotrigine 150 mg tablet 150 mg PO TID 09/19/24 Unknown History losartan 25 mg tablet 25 mg PO DAILY 09/19/24 Unknown History metoprolol succinate 50 mg 50 mg PO DAILY 09/19/24 Unknown History tablet,extended release 24 hr pantoprazole 20 mg tablet,delayed 20 mg PO DAILY 09/19/24 Unknown History release rosuvastatin 40 mg tablet 40 mg PO DAILY 09/19/24 Unknown History spironolactone 25 mg tablet 25 mg PO DAILY 09/19/24 Unknown History ticagrelor 90 mg tablet (Brilinta) 90 mg PO BID 09/19/24 Unknown History Allergy/AdvReac Type Severity Reaction Status Date / Time No Known Allergies Allergy Verified 09/19/24 16:40 Family History (Updated 08/09/24 @ 20:[address] Sadie Mckeon MD) Mother Cancer Father Cancer Surgical History (Updated 08/09/24 @ 20:[address] Sadie Mckeon MD) History of tonsillectomy and adenoidectomy S/P gastric bypass Social History (Updated 08/09/24 @ 20:[address] Sadie Mckeon MD) household members: none Smoking Status: Current every day smoker tobacco type: cigarettes Electronic Cigarette Use: with nicotine alcohol intake: never substance use type: does not use ROS ROS ED Review of Systems ROS Unobtainable: other Constitutional Constitutional ED: Reports lethargy; Denies chills, fever(s), sweats or weight loss Eyes Eyes: Denies blurry vision, change in vision or diplopia ENT ENT ED: Denies rhinorrhea or sore throat Cardiovascular Cardiovascular: Reports chest pain and racing heartbeat; Denies orthopnea Respiratory/Chest Respiratory/Chest: Denies cough, dyspnea, dyspnea on exertion, orthopnea or sputum Gastrointestinal Gastrointestinal: Reports abdominal pain; Denies diarrhea, nausea or vomiting Genitourinary Genitourinary ED: Denies dysuria, hematuria or urinary frequency Musculoskeletal Musculoskeletal: Denies arthralgias, back pain, myalgias or neck pain Integumentary Denies abscess, Abrasions or rash Neurologic Neurologic: Denies headache(s) or weakness Psychiatric Psychiatric: Denies anxiety, depression or suicidal thoughts Endocrine Endocrinology: Denies polydipsia, polyphagia or polyuria Hematologic/Lymphatic Hematologic/Lymphatic: Denies easy bleeding, easy bruising or lymphadenopathy Allergic/Immunologic Allergic/Immunologic ED: Denies mouth swelling, tongue swelling or urticaria EXAM Physical Exam Const Vital Signs: 09/19/24 16:40 09/19/24 17:53 09/19/24 17:56 Temperature 98.2 F Temperature Source Oral Pulse Rate 64 87 Respiratory Rate 24 H 18 Blood Pressure 125/106 H Blood Pressure Mean 112 Pulse Ox 93 98 Oxygen Delivery Method Room Air Room Air Room Air 09/19/24 18:18 09/19/24 19:07 09/19/24 20:00 Temperature Temperature Source Pulse Rate 62 Respiratory Rate 17 Blood Pressure 176/85 H 141/77 H 163/78 H Blood Pressure Mean 115 98 106 Pulse Ox 98 Oxygen Delivery Method Room Air Positive well nourished and well developed General Appearance ED: well developed and NAD HEENT Reports TM's clear and moist mucous membranes normocephalic and atraumatic; Negative for trauma or tenderness Tympanic Membrane ED: Yes TM's clear Eyes PERRL and EOMs intact bilaterally General Eye ED: Negative for pale conjunctiva or scleral icterus Neck no lymphadenopathy, supple and no JVD General: Negative for tenderness Chest Wall inspection of chest normal and palpation of chest normal Chest: Negative for tenderness Resp normal respiratory effort and clear to auscultation bilaterally Effort and Inspection: Negative for respiratory distress or pain with movement Auscultation: Negative for rhonchi, wheezes or diminished lung sounds Cardio regular rate, regular rhythm, S1 normal heart sound, S2 normal heart sound and no murmurs Peripheral Pulses: pulses 2+ throughout GI normal to inspection, nondistended, normoactive bowel sounds, soft to palpation, non-distended and no masses GI Narrative: Tenderness to palpation in the epigastric region and right upper quadrant with some guarding. No rebound or rigidity. Back/Spine no CVA tenderness and no thoracic nor lumbar tenderness Extremity normal to inspection General Extremety ED: Negative for edema General Extremity: Negative for edema Neuro oriented x3, CN's II-XII intact bilaterally, no sensory deficits noted and gait normal Sensorium / Orientation: awake, alert, oriented to person, oriented to place and oriented to time Motor Exam: strength 5/5 throughout and strength abnormal Psych mental status grossly normal Skin no rashes or lesions noted and no wounds MDM MDM MDM Narrative Medical decision making narrative: Patient presents with abdominal pain in the upper abdomen also recent CT with 2 stents at [facility]. Patient ate some spicy food this morning which is not unusual. In the differential would be gastritis versus GERD versus coronary syndrome, versus gallbladder disease or other acute abdominal pathology. IV line established. EKG obtained arrival showed a sinus rhythm with ventricular rate of 64 bpm with no acute ST segment changes. CBC with differential white count of 8.9 with hemoglobin 13 and platelet count of 247. Chemistries unremarkable. LFTs were normal. Lipase normal at 30. Troponin minimally elevated at 25. CT scan of the abdomen pelvis with IV contrast showed prior Emmy-en-Y gastric bypass with target appearance of the small bowel at the jejunal anastomosis which may represent transient intussusception however small bowel intussusception cannot be ruled out. Patient also had gallbladder wall thickening and pericholecystic fluid and recommended getting an ultrasound of the gallbladder. Gallbladder ultrasound was obtained that showed small stones in the gallbladder neck with a dilated common bile duct at 8 mm and a thickened gallbladder wall at 6 mm. Patient had pericholecystic fluid and a positive Barth sign. Case was discussed with general surgeon on-call Dr. Crvaen who recommended we transfer patient to tertiary care center. Discussed case with [facility] general surgeon Dr. Bocanegra who accepted transfer of patient but asked that we send patient to their emergency department. I discussed case with Dr. Yancey in the emergency department who accepted transfer of patient. Lab Data Attestation: I reviewed the patient's lab results. Labs: Laboratory Results - last 24 hr 09/19/24 16:45 WBC 8.9 RBC 4.26 L Hgb 13.0 Hct 40.3 MCV 94.6 H MCH 30.5 MCHC 32.3 RDW Std Deviation 48.4 H RDW Coeff of Andreina 13.9 Plt Count 247 MPV 10.8 Immature Gran % (Auto) 0.200 Neut % (Auto) 65.5 Lymph % (Auto) 24.0 Randolph % (Auto) 7.7 Eos % (Auto) 2.0 Baso % (Auto) 0.6 Absolute Neuts (auto) 5.8 Absolute Lymphs (auto) 2.14 Nucleated RBC % 0 Sodium 140 Potassium 3.7 Chloride 104 Carbon Dioxide 24.1 Anion Gap 12 BUN 17 Creatinine 0.87 Estim Creat Clear Calc 109.38 Est GFR (MDRD) Non-Af 97 BUN/Creatinine Ratio 19.1 Glucose 100 H Calcium 9.6 Total Bilirubin 0.24 AST 26 ALT 20 Alkaline Phosphatase 120 Troponin T High Sens 25 H Total Protein 7.3 Albumin 4.4 Globulin 2.9 Albumin/Globulin Ratio 1.5 Lipase 30 Radiography Diagnostic Testing: Clinical Impression(s) from Imaging Studies Abdomen/Pelvis CT 09/19/24 16:53 IMPRESSION: 1. Prior Emmy-en-Y gastric bypass with target appearance of the small bowel at the jejunal anastomosis, which may represent transient intussusception, however small-bowel intussusception can not be ruled out. Clinical correlation recommended and possible surgical consult if indicated. 2. Gallbladder wall thickening and pericholecystic fluid without radiopaque stones. Correlation with right upper quadrant ultrasound is recommended. 3. Tiny bilateral pulmonary nodules. If patient is high risk, recommend optional follow-up CT chest in 1 year. Reading Location: [facility] Chest X-Ray 09/19/24 18:00 IMPRESSION: No Acute Findings. Reading Location: [facility] Gallbladder Ultrasound 09/19/24 18:51 IMPRESSION: Findings are consistent/concerning for acute cholecystitis as above. CBD dilated for age at 8 mm, can not exclude possible choledocholithiasis. Reading Location: [facility] EKG Initial EKG: Attestation: I personally reviewed and interpreted this EKG as follows: Comments: Sinus rhythm with ventricular rate of 64 bpm with no acute ST segment changes Discharge Plan Triage Chief Complaint: Chest Pain ED Provider: Charli Duarte Dx/Rx/DC Orders Clinical Impression: Acute cholecystitis, Abdominal pain, History of coronary artery disease Prescriptions: No Action cyanocobalamin (vitamin B-12) 1,000 MCG tablet, sublingual 500 mcg sublingual DAILY Patient Comments: takes on cholecalciferol (vitamin D3) [Vitamin D3] 2,000 UNIT tablet 2,000 unit PO DAILY Pediatric Multivit #14/Iron/FA 1 tab PO DAILY temazepam [Restoril] 30 MG capsule 30 mg PO QHS PRN PRN (Reason: Sleep) magnesium 200 MG tablet 400 mg PO DAILY hydroxyzine HCl 50 mg tablet 25 - 100 mg PO DAILY dextroamphetamine-amphetamine 20 mg tablet 1 tab PO TID gabapentin 300 mg capsule 300 mg PO TID lamotrigine 150 mg tablet 150 mg PO TID metoprolol succinate 50 mg tablet extended release 24 hr 50 mg PO DAILY spironolactone 25 mg tablet 25 mg PO DAILY pantoprazole 20 mg tablet,delayed release (DR/EC) 20 mg PO DAILY losartan 25 mg tablet 25 mg PO DAILY rosuvastatin 40 mg tablet 40 mg PO DAILY Brilinta 90 mg tablet 90 mg PO BID Primary Care Provider: Jorge Mayberry Referrals: Jorge Mayberry MD [Primary Care Provider] - Print Language: Amharic Disposition Disposition: DC/Tx to Another Type of HCF
[2024-09-19] MEDS: Morphine 4 MG/ML Syringe IV ×2 (17:04→21:39)
[2024-09-19] MEDS: Ondansetron 4 MG/2 ML Vial IV (17:04)
[2024-09-19 17:35] LABS: Absolute Lymphocyte Count 2.14 X10^3/uL (0.83-4.51); Absolute Neutrophil Count 5.8 X10^3/uL (2.0-7.7); Basophil# 0.05 X10^3/uL; Basophil% 0.6 % (0-1); Eosinophil# 0.18 X10^3/uL; Hematocrit 40.3 % (40-54); Lymphocyte # 2.14 X10^3/ul (0.83-4.51); Mean Corp Hgb Conc 32.3 g/dL (32-36); Mean Corpuscular Hgb 30.5 pg (27.0-32.0); Mean Corpuscular Volume 94.6 fL (80-94); Mean Platelet Vol. 10.8 fl (6.2-12.0); Monocyte# 0.69 X10^3/uL; Monocyte% 7.7 % (0-10); NRBC Flagged by Analyzer 0 % (0-5); Neutrophil # 5.84 X10^3/uL (2.7-7.7); Neutrophil % 65.5 % (47-70); Platelet Count 247 K/mm3 (150-450); RBC Distribution Width CV 13.9 % (11.6-14.6); RBC Distribution Width SD 48.4 fl (35.1-43.9); Red Blood Count 4.26 M/mm3 (4.6-6.2); White Blood Count 8.9 K/mm3 (4.4-11.0)
[2024-09-19 17:42] LABS: ALB/GLOB Ratio 1.5 RATIO (0.9-2.4); AST(SGOT) 26 U/L (<=37); Alanine Aminotransfer ALT/SGPT 20 U/L (<=46); Albumin, Serum 4.4 g/dL (3.4-4.8); Alkaline Phosphatase 120 U/L (40-129); Anion Gap 12 (5-15); BUN 17 mg/dL (4-19); BUN/Creat Ratio 19.1 RATIO (10-20); Calcium,Total 9.6 mg/dL (7.6-11.0); Carbon Dioxide 24.1 mmol/L (21.0-32.0); Chloride 104 mmol/L (98-108); Creatinine, Serum 0.87 mg/dL (0.70-1.20); EST Glomerular Filtration Rate 97 (>60); Estimated Creatinine Clearance 109.38 ml/min (50-250); Globulin 2.9 g/dL (2.2-4.2); Glucose 100 mg/dL (70-99); Lipase 30 U/L (13-75); Potassium 3.7 mmol/L (3.3-5.1); Protein, Total 7.3 g/dL (5.9-8.4); Sodium Level 140 mmol/L (133-145); Total Bilirubin 0.24 mg/dL (0.00-1.30); Troponin T High Sensitivity 25 ng/L (<=22)
[2024-09-19] MEDS: 0.9% Normal Saline (1000mL) 1,000 ML 150 ML IV (17:57)
--- NOTE | 2024-09-19 18:00 | RAD_ITS ---
PROCEDURE: CHEST 1 VIEW (PORTABLE) 09/19/2024 REASON FOR EXAM: CHEST PAIN TECHNIQUE: Frontal view of the chest. COMPARISON: 08/09/2019 FINDINGS: Hardware: Interval extubation. Heart: Cardiac and mediastinal contours are stable. Lungs: Mild bilateral bronchial thickening, similar to the prior examination. Otherwise, no focal consolidation. No pneumothorax. No pleural effusion. Bones: The bones are unremarkable. Other: RAD/Chest 1 View (Portable) IMPRESSION: No Acute Findings. Reading Location: [facility]
--- NOTE | 2024-09-19 18:51 | US_ITS ---
PROCEDURE: GALLBLADDER 09/19/2024 REASON FOR EXAM: ABDOMINAL PAIN COMPARISON: Preceding CT abdomen and pelvis FINDINGS: The pancreas is obscured by bowel gas. The liver is enlarged at 20 cm and appears diffusely increased in echogenicity which can be seen with hepatic steatosis or other hepatocellular disease. Hepatic color flow is seen with flow within the portal vein appearing hepatopetal as expected. No evidence of intrahepatic biliary ductal dilation seen. A 2.9 x 3.3 x 3.6 cm hypoechoic/anechoic appearing lesion at the dome of the liver with some internal echo possible septation which by CT felt to be possible cyst or hemangioma. Abnormal appearing gallbladder, distended containing possible small stones in the neck area with wall thickening at 6 mm and pericholecystic free fluid with report of positive sonographic Barth's sign. CBD 8 mm, dilated for age. The right kidney measures 12.7 x 5.5 x 7.4 cm with a cortical thickness of 1.8 cm. No hydronephrosis, stone or perinephric edema identified. US/Gallbladder IMPRESSION: Findings are consistent/concerning for acute cholecystitis as above. CBD dilated for age at 8 mm, can not exclude possible choledocholithiasis. Reading Location: [id number]
--- NOTE | 2024-09-19 21:07 | PCA ---
PT ACCEPTED [facility] DR. LAGOS
[2024-09-19 21:38] LABS: Troponin T High Sens 2 HR 23 ng/L (<=22)
[2024-09-19] MEDS: Piperacil/Tazobactam 4.5 GM in 0.9% Normal Saline (100mL MB+) 100 ML IV (21:40)
== END 2024-09-19 22:16 | disposition other institution (70) ==
PROVIDERS: Emergency Provider Emergency Medicine; PCP Family Medicine; Visit Provider Emergency Medicine
DX: K80.00 Calculus of gallbladder with acute cholecystitis without obstruction (principal); E11.9 Type 2 diabetes mellitus without complications; F17.210 Nicotine dependence, cigarettes, uncomplicated; I10 Essential (primary) hypertension; Z79.899 Other long term (current) drug therapy; Z95.5 Presence of coronary angioplasty implant and graft
CPT/HCPCS: 71045; 74177; 76705; 80053; 83690; 84484; 85025; 93005; 96361; 96365; 96375; 96376; 99285; Q9967; A4216; J2405